=== PATIENT | female | born 1950 ===

== ENCOUNTER 2018-10-24 10:25 | Outpatient (REF) | payer MEDICARE, BC, SELFPAY ==
[2018-10-24 21:39] LABS: Calculated LDL 209 mg/dL; Cholesterol 310 mg/dL (50-200); HDL Cholesterol 88 mg/dL (40-60); Triglyceride 65 mg/dL (30-150)
== END 2018-10-24 10:45 ==
LOC: NCHCN 10:25
PROVIDERS: PCP Registered Nurse; Visit Provider Registered Nurse
DX: E78.5 Hyperlipidemia, unspecified (principal)
CPT/HCPCS: 80061